=== PATIENT | male | born 2000 | race Caucasian/White ===

== ENCOUNTER → 2019-10-14 | Outpatient (CLI) | payer OTHER ==
--- NOTE | 2019-10-15 15:50 | REP ---
Clinical: Dyspnea . Comparison: None. Technique: PA and lateral. Findings: The mediastinum and cardiac silhouette are normal. The lung moeller are clear and without acute consolidation, effusion, or pneumothorax. The skeletal structures are intact and normal. Impression: 1. No acute cardiopulmonary process. Electronically Signed by Kenji Villatoro MD 10/15/2019 03:41 P
== END ==
LOC: M RAD 09:22
PROVIDERS: ATTEND Physician Assistant
DX: R06.00 Dyspnea, unspecified (principal)

== ENCOUNTER → 2021-08-01 | Outpatient (REF) | LOC: M PLAIMG 08:13 | PROVIDERS: ATTEND Internal Medicine | DX: M54.9 Dorsalgia, unspecified (principal); R06.02 Shortness of breath ==